=== PATIENT | male | born 1980 | race Caucasian/White ===

== ENCOUNTER 2017-12-04 01:35 | Emergency (ER) | payer SELFPAY ==
[2017-12-04 01:58] VITALS: RESP 16; TEMP 98.8
[2017-12-04] MEDS ORDERED: Amoxicillin-Clav 875-125 mg Tab PO STA (02:51)
--- NOTE | 2017-12-04 02:56 | ED PDOC ---
HPI: General Adult Time Seen by Provider: 12/04/17 02:30 Chief Complaint (Nursing): ENT Problem History Per: Patient Additional Complaint(s): Pt. states for the 3 days he's had a sore throat with a fever tmax of 101. Has been taking Advil without relief. Denies cough, congestion, rash, N/V, sick contacts, recent travel, SOB. Past Medical History Reviewed: Historical Data, Nursing Documentation, Vital Signs Vital Signs: Last Vital Signs Temp 98.8 F 12/04/17 01:56 Pulse 84 12/04/17 01:56 Resp 16 12/04/17 01:56 BP 151/92 H 12/04/17 01:56 Pulse Ox 99 12/04/17 01:56 - Surgical History Surgical History: No Surg Hx - Family History Family History: States: No Known Family Hx - Home Medications Home Medications: Ambulatory Orders Medication Instructions Recorded Amoxicillin/Clavulanate [Augmentin 1 tab PO BID #19 tab 12/04/17 500 MG-125 MG] Naproxen [Naprosyn] 500 mg PO BID PRN #14 tab 12/04/17 - Allergies Allergies/Adverse Reactions: Allergies Allergy/AdvReac Type Severity Reaction Status Date / Time No Known Allergies Allergy Verified 12/04/17 01:59 Review of Systems ROS Statement: Except As Marked, All Systems Reviewed And Found Negative Constitutional: Positive for: Fever ENT: Positive for: Throat Pain, Throat Swelling Physical Exam - Physical Exam Appears: Positive for: Well, Non-toxic, No Acute Distress Skin: Positive for: Normal Color, Warm. Negative for: Rash Eye Exam: Positive for: Normal appearance. Negative for: Conjunctival injection (b/l) ENT: Positive for: TM Is/Are (non-erythematous, non-bulging b/l), Pharyngeal Erythema, Other (uvula is erythematous and edematous; no trismus; able to swallow saliva). Negative for: Tonsillar Exudate, Tonsillar Swelling Neck: Positive for: Normal, Painless ROM Cardiovascular/Chest: Positive for: Regular Rate, Rhythm Respiratory: Positive for: Normal Breath Sounds. Negative for: Stridor, Respiratory Distress Gastrointestinal/Abdominal: Positive for: Normal Exam, Soft. Negative for: Tenderness, Organomegaly Neurologic/Psych: Positive for: Alert, Oriented (x3). Negative for: Aphasia, Facial Droop - ECG O2 Sat by Pulse Oximetry: 99 - Progress ED Course And Treament: Decadron 10mg IM, augmentin PO, throat culture, tylenol 975mg PO ordered. Disposition - Clinical Impression Clinical Impression: Uvulitis - Patient ED Disposition Is Patient to be Admitted: No - Disposition Referrals: [facility] [Outside] [facility] [Outside] Disposition: Routine/Home Disposition Time: 02:58 Condition: STABLE Additional Instructions: FOLLOW UP WITH [facility] FOR FURTHER EVALUATION RETURN TO ED IMMEDIATELY IF SYMPTOMS WORSEN SIS LIGHT, thank you for letting us take care of you today. Your provider was Marlon Livingston MD and you were treated for FEVER, THROAT PAIN. The emergency medical care you received today was directed at your acute symptoms. If you were prescribed any medication, please fill it and take as directed. It may take several days for your symptoms to resolve. Return to the Emergency Department if your symptoms worsen, do not improve, or if you have any other problems. Please contact your doctor or call one of the physicians/clinics you have been referred to that are listed on the Patient Visit Information form that is included in your discharge packet. Bring any paperwork you were given at discharge with you along with any medications you are taking to your follow up visit. Our treatment cannot replace ongoing medical care by a primary care provider outside of the emergency department. Thank you for allowing the [facility] [employer] team to be part of your care today. If you had an X-Ray or CT scan: A Radiologist will review the ED reading if any change in treatment is needed we will contact you. If you had a blood, urine, or wound culture: It will take several days for the results, if any change in treatment is needed we will contact you. If you had an STI test: It will take 48 hours for the results. Please call after 1 week if you have not heard back. Prescriptions: Amoxicillin/Clavulanate [Augmentin 500 MG-125 MG] 1 tab PO BID #19 tab Naproxen [Naprosyn] 500 mg PO BID PRN #14 tab PRN Reason: Pain Instructions: Sore Throat, Adult (DC) Print Language: OCCITAN
[2017-12-04 03:14] VITALS: BP 125/88; PULSE 82; O2SAT 98
== END 2017-12-04 03:17 | disposition home or self-care (01) ==
LOC: H.ER 01:35
DX: K12.2 Cellulitis and abscess of mouth (principal)
CPT/HCPCS: 96372; 99283; J1100